=== PATIENT | male | born 1945 | race Caucasian/White ===

== ENCOUNTER 2016-08-03 11:02 | Outpatient (RCR) | payer BC, MEDICARE ==
[~2016-08-03] VITALS: Ht 175.3 cm; Wt 71.2 kg
[~2016-08-03 11:02] MED LIST: OMALIZUMAB 150 MG (XOLAIR) VIAL SC SCH
[2016-08-17] MEDS: OMALIZUMAB 150 MG (XOLAIR) VIAL SC SCH (11:07)
[2016-08-31] MEDS: OMALIZUMAB 150 MG (XOLAIR) VIAL SC SCH (10:53)
--- NOTE | 2016-09-21 09:59 | NUR ---
3 injections give: 2 in right arm, 1 in left arm.
[2016-09-21] MEDS ORDERED: OMALIZUMAB 150 MG (XOLAIR) VIAL SC SCH (10:00)
--- NOTE | 2016-10-05 13:15 | NUR ---
lg & sm injections in rt upper/lower post arm. lg injection in lt upper post arm.
[2016-10-05] MEDS: OMALIZUMAB 150 MG (XOLAIR) VIAL SC SCH ×3 (13:23→13:31)
[2016-10-19] MEDS ORDERED: OMALIZUMAB 150 MG (XOLAIR) VIAL SC SCH (09:30)
[2016-10-19 09:53] VITALS: BP 141/93
--- NOTE | 2016-10-19 09:53 | NUR ---
2 injections given in right arm, 1 in left side.
== END 2016-11-01 | disposition home or self-care (01) ==
LOC: EUOP 08-17 10:57
PROVIDERS: ATTEND Family Medicine
DX: J45.40 Moderate persistent asthma, uncomplicated (principal)
CPT/HCPCS: 96372; J2357

== ENCOUNTER 2016-11-02 10:45 | Outpatient (RCR) | payer MEDICARE, BC ==
[~2016-11-02] VITALS: Ht 175.3 cm; Wt 70.3 kg
[~2016-11-02 10:45] MED LIST changes: +CLOP75TA3 PO; +FAMO20TA45 PO; +FLUT1DIS4 IH; +INDA1.25 PO; +LSNP20T PO; +NF-CRES10T PO; +OMAL150V SC; -OMALIZUMAB 150 MG (XOLAIR) VIAL SC SCH; +TIOT18CA IH
[2016-11-02] MEDS ORDERED: OMALIZUMAB 150 MG (XOLAIR) VIAL SC SCH (11:00)
[2016-11-16] MEDS ORDERED: OMALIZUMAB 150 MG (XOLAIR) VIAL SC SCH (10:45)
[2016-11-30] MEDS ORDERED: OMALIZUMAB 150 MG (XOLAIR) VIAL SC SCH (11:00)
[2016-12-14] MEDS ORDERED: OMALIZUMAB 150 MG (XOLAIR) VIAL SC SCH (11:00)
[2016-12-29] MEDS ORDERED: OMALIZUMAB 150 MG (XOLAIR) VIAL SC SCH (11:00)
[2017-01-11] MEDS ORDERED: OMALIZUMAB 150 MG (XOLAIR) VIAL SC SCH (11:00)
[2017-01-25] MEDS ORDERED: OMALIZUMAB 150 MG (XOLAIR) VIAL SC SCH (11:00)
[2017-01-25 11:19] VITALS: BP 126/91
== END 2017-01-31 | disposition home or self-care (01) ==
LOC: EUOP 11-16 10:55
PROVIDERS: ATTEND Family Medicine
DX: J45.40 Moderate persistent asthma, uncomplicated (principal)
CPT/HCPCS: 96372; J2357

== ENCOUNTER 2017-02-08 10:57 | Outpatient (RCR) | payer MEDICARE, BC ==
[~2017-02-08] VITALS: Ht 175.3 cm; Wt 70.3 kg
[2017-02-08] MEDS ORDERED: OMALIZUMAB 150 MG (XOLAIR) VIAL SC SCH (11:00)
[2017-02-22] MEDS ORDERED: OMALIZUMAB 150 MG (XOLAIR) VIAL SC SCH (11:00)
[2017-03-08] MEDS ORDERED: OMALIZUMAB 150 MG (XOLAIR) VIAL SC SCH (11:00)
[2017-03-08 11:07] VITALS: BP 141/79
== END 2017-03-08 18:24 | disposition home or self-care (01) ==
LOC: EUOP 02-22 11:02
PROVIDERS: ATTEND Family Medicine
DX: J45.40 Moderate persistent asthma, uncomplicated (principal)
CPT/HCPCS: 96372; J2357